=== PATIENT | female | born 1970 | race Caucasian/White ===

== ENCOUNTER 2016-09-27 13:34 | Inpatient (IN) | payer BC ==
[~2016-09-27] VITALS: Ht 165.1 cm; Wt 91.4 kg
[~2016-09-27 13:34] MED LIST: ALLEGRA ALLERG180 MG PO; CEFTIN 250250 MG/TAB PO; LORTAB 5/500 501 TAB PO; MULTIPLE VITAMI1 CAP PO; NO HOME MEDICATIONS; ZOFRAN 4MG T4 MG/TAB PO
[2016-10-03] VITALS (18 sets, daily range): BP systolic 108–130; BP diastolic 59–83; PULSE 68–113; TEMP 97.5–98.2
[2016-10-03 07:53] LABS: BASO % 0.2 % (0.0-2.0); EOS # 0.1 (0.0-0.7); EOS % 0.5 % (0-4.0); GRAN # 7.5 (1.4-6.5); GRAN % 79.6 % (42.2-75.2); HEMATOCRIT 37.5 % (37.0-47.0); HEMOGLOBIN 12.5 g/dl (12.5-16.0); LYMPH # 1.3 (1.2-3.4); LYMPH % 13.4 % (20.0-51.0); MEAN CELL VOLUME 87 fl (80.0-100.0); MEAN CORPUSCULAR HEMOGLOBIN 29 pg (27.0-31.0); MEAN CORPUSCULAR HGB CONC 33 g/dl (33.0-37.0); MEAN PLATELET VOLUME 9.2 fl (7.4-10.4); MONO # 0.6 (0.1-0.6); MONO % 5.9 % (1.7-9.3); PLATELET COUNT 230 K/mm3 (130-400); RED BLOOD COUNT 4.31 M/mm3 (4.10-5.30); WHITE BLOOD COUNT 9.4 K/mm3 (4.8-10.8)
[2016-10-04 03:30] VITALS: BP 119/77; PULSE 85; TEMP 97.8
[2016-10-04 07:15] VITALS: BP 110/67; PULSE 71; TEMP 98.1
[2016-10-04 07:35] LABS: BASO % 0.4 % (0.0-2.0); EOS # 0.1 (0.0-0.7); EOS % 1.5 % (0-4.0); GRAN # 5.1 (1.4-6.5); GRAN % 70.7 % (42.2-75.2); LYMPH # 1.5 (1.2-3.4); LYMPH % 20.2 % (20.0-51.0); MEAN CELL VOLUME 90 fl (80.0-100.0); MEAN CORPUSCULAR HGB CONC 33 g/dl (33.0-37.0); MEAN PLATELET VOLUME 9.4 fl (7.4-10.4); MONO # 0.5 (0.1-0.6); MONO % 6.8 % (1.7-9.3); PLATELET COUNT 209 K/mm3 (130-400); RED BLOOD COUNT 3.85 M/mm3 (4.10-5.30); REDCELL DISTRIBUTION WIDTH-CV 15.4 % (11.5-14.5); WHITE BLOOD COUNT 7.2 K/mm3 (4.8-10.8)
[2016-10-04 08:10] LABS: HEMATOCRIT 34.5 % (37.0-47.0); HEMOGLOBIN 11.2 g/dl (12.5-16.0); MEAN CORPUSCULAR HEMOGLOBIN 29 pg (27.0-31.0)
[2016-10-04] MEDS ORDERED: PERCOCET 325 MG1 TA2 PO (08:50)
[2016-10-04] MEDS ORDERED: IBU800 M1 PO (08:50)
[2016-10-04 16:15] VITALS: BP 105/66; BP 122/79; PULSE 71; PULSE 89; TEMP 97.3; TEMP 98.2
[2016-10-04 20:30] VITALS: BP 125/69; PULSE 93; TEMP 97.5
[2016-10-05 08:20] VITALS: BP 120/70; PULSE 80; TEMP 97.9
== END 2016-10-05 11:45 | disposition home or self-care (01) | DRG 766 ==
LOC: OB 10-03 06:25 → LDR 10-03 07:13 → OB 10-03 09:55 → EDSTATUS 10-10 06:21 → LDRO 10-10 13:33
PROVIDERS: Student in an Organized Health Care Education/Training Program
PROC: 10D00Z1 Extraction of Products of Conception, Low, Open Approach (ICD-10-PCS; principal; 2016-10-03)
PROC: 0UT70ZZ Resection of Bilateral Fallopian Tubes, Open Approach (ICD-10-PCS; 2016-10-03)
DX: O34.211 Maternal care for low transverse scar from previous cesarean delivery (principal); N85.8 Other specified noninflammatory disorders of uterus; O09.523 Supervision of elderly multigravida, third trimester; O99.824 Streptococcus B carrier state complicating childbirth; O24.420 Gestational diabetes mellitus in childbirth, diet controlled; O69.81X0 Labor and delivery complicated by cord around neck, without compression, not applicable or unspecified; Z3A.39 39 weeks gestation of pregnancy; Z37.0 Single live birth; Z40.09 Encounter for prophylactic removal of other organ
CPT/HCPCS: J0690; J1885; J2270; J2370; J2405; J2590; J7120

== ENCOUNTER 2016-12-06 01:33 | Emergency (ER) | payer BC ==
[~2016-12-06] VITALS: Ht 165.1 cm; Wt 79.5 kg
[~2016-12-06 01:33] MED LIST changes: +IBU800 M1 PO; +PERCOCET 325 MG1 TA2 PO
[2016-12-06 01:34] VITALS: BP 139/76; TEMP 98.1
[2016-12-06] MEDS ORDERED: CLARITIN 1010 MG/TAB PO (01:42)
[2016-12-06 02:18] LABS: BASO % 0.3 % (0.0-2.0); EOS # 0.2 (0.0-0.7); GRAN # 7.4 (1.4-6.5); GRAN % 70.8 % (42.2-75.2); HEMATOCRIT 40.9 % (37.0-47.0); HEMOGLOBIN 13.7 g/dl (12.5-16.0); LYMPH # 2.3 (1.2-3.4); LYMPH % 22.1 % (20.0-51.0); MEAN CELL VOLUME 88 fl (80.0-100.0); MEAN CORPUSCULAR HEMOGLOBIN 29 pg (27.0-31.0); MEAN CORPUSCULAR HGB CONC 34 g/dl (33.0-37.0); MEAN PLATELET VOLUME 8.8 fl (7.4-10.4); MONO # 0.4 (0.1-0.6); MONO % 4.1 % (1.7-9.3); PLATELET COUNT 262 K/mm3 (130-400); RED BLOOD COUNT 4.67 M/mm3 (4.10-5.30); WHITE BLOOD COUNT 10.5 K/mm3 (4.8-10.8)
[2016-12-06 02:28] LABS: ADJUSTED CALCIUM 9.6 mg/dL (8.4-10.2); ALBUMIN 3.8 gm/dL (3.5-5.0); BILIRUBIN,TOTAL 0.5 mg/dL (0.0-1.0); CALCIUM 9.4 mg/dL (8.4-10.2); CREATININE, serum 0.79 mg/dL (0.52-1.25); POTASSIUM 3.9 mmol/L (3.4-5.0); TOTAL PROTEIN 6.8 gm/dL (6.4-8.2)
[2016-12-06 03:50] LABS: PH 6 (5-8); SQUAMOUS EPITHELIAL 0-2 /hpf; URINE APPEARANCE Clear; URINE BACTERIA Moderate /hpf; URINE BILIRUBIN Negative (NEGATIVE); URINE BLOOD 1+ (NEGATIVE); URINE COLOR Straw; URINE GLUCOSE Negative (NEGATIVE); URINE KETONE Negative (NEGATIVE); URINE RBC 0-2 /hpf; URINE UROBILINOGEN Negative (NEGATIVE)
[2016-12-06] MEDS ORDERED: CEFTIN500 MG PO (04:20)
[2016-12-06 04:32] VITALS: PULSE 74
== END 2016-12-06 04:33 | disposition home or self-care (01) ==
LOC: COL.ER 01:33
PROVIDERS: Emergency Medicine
DX: R10.84 Generalized abdominal pain (principal); K80.20 Calculus of gallbladder without cholecystitis without obstruction; N39.0 Urinary tract infection, site not specified; Z87.442 Personal history of urinary calculi; N28.82 Megaloureter
CPT/HCPCS: J1885; J2405; J7030; Q9967

== ENCOUNTER → 2018-04-03 | Outpatient (CLI) | payer BC ==
[~2018-04-03] VITALS: Ht 165.1 cm; Wt 90.0 kg
[~2018-04-03] MED LIST changes: +ALLEGRA 180MG180 MG PO; +CEFTIN500 MG PO; +CLARITIN 1010 MG/TAB PO
[2018-04-03 12:44] VITALS: BP 129/91; PULSE 83
[2018-04-03 13:25] VITALS: BP 150/97; PULSE 86
== END ==
LOC: COL.RAD 11:15
DX: E04.1 Nontoxic single thyroid nodule (principal)

== ENCOUNTER → 2021-04-12 | Outpatient (CLI) | payer BC | LOC: COL.RAD 04-02 14:45 | DX: E04.1 Nontoxic single thyroid nodule (principal) ==